=== PATIENT | male | born 1985 | race Caucasian/White ===

== ENCOUNTER 2024-12-04 11:53 | Emergency (ER) | payer MEDICAID ==
[~2024-12-04] VITALS: Ht 172.7 cm; Wt 97.0 kg
[2024-12-04 11:54] VITALS: TEMP 36.7; O2SAT 97
[2024-12-04] MEDS: LIDOCAINE HCL/PF 1% 10 MG/ML 5ML VIAL INFIL ONE (12:15)
[2024-12-04] MEDS: LIDOCAINE HCL 1% 20ML VIAL INFIL ONE (12:15)
[2024-12-04] MEDS: TETANUS, DIPHTHERIA, PERTUSSIS VAC/PF 0.5ML (>10YR OLD) IM ONE (13:27)
[2024-12-04] MEDS: CEFTRIAXONE SODIUM 1G VIAL IM ONE (13:28)
[2024-12-04] MEDS: IBUPROFEN 400MG TABLET PO ONE (13:29)
[2024-12-04] MEDS ORDERED: CEPH500C2 MT (14:37)
[2024-12-04 14:56] VITALS: BP 165/97; PULSE 64; RESP 12; O2SAT 100
== END 2024-12-04 15:07 | disposition home or self-care (01) ==
LOC: ER 11:53
DX: S60.451A Superficial foreign body of left index finger, initial encounter (principal); S61.211A Laceration without foreign body of left index finger without damage to nail, initial encounter; X58.XXXA Exposure to other specified factors, initial encounter; Y93.89 Activity, other specified; Y92.89 Other specified places as the place of occurrence of the external cause; Y99.8 Other external cause status
CPT/HCPCS: 99284; 73130; 90715; 12002; 29130; 90471; 96372; J0696; J3490; J2003

== ENCOUNTER 2024-12-11 10:44 | Emergency (ER) | payer MEDICAID ==
[~2024-12-11] VITALS: Ht 172.7 cm; Wt 99.8 kg
[~2024-12-11 10:44] MED LIST: CEPH500C2 MT
[2024-12-11] MEDS ORDERED: BO1 TP (11:02)
[2024-12-11 11:05] VITALS: BP 150/76; PULSE 61; RESP 16; TEMP 36.9; O2SAT 100
== END 2024-12-11 11:39 | disposition home or self-care (01) ==
LOC: ER 10:44
DX: S61.211D Laceration without foreign body of left index finger without damage to nail, subsequent encounter (principal); Z48.02 Encounter for removal of sutures; Z98.890 Other specified postprocedural states; X58.XXXD Exposure to other specified factors, subsequent encounter
CPT/HCPCS: 99282